=== PATIENT | male | born 1950 | race Hispanic/Latino ===

== ENCOUNTER → 2024-06-29 | Outpatient (REF) | payer MEDICARE | LOC: US 10:29 | PROVIDERS: ATTEND Specialist/Technologist, Other Surgical Technologist | DX: K74.60 Unspecified cirrhosis of liver (principal) | CPT/HCPCS: 76700 ==

== ENCOUNTER → 2024-09-21 | Outpatient (REF) | payer MEDICARE | LOC: EDSTATUS 12:35 → RAD 13:14 | PROVIDERS: ATTEND Student in an Organized Health Care Education/Training Program | DX: R07.81 Pleurodynia (principal) | CPT/HCPCS: 71046 ==

== ENCOUNTER 2024-11-16 06:26 | Day surgery (SDC) | payer MEDICARE ==
[2024-11-10 14:02] LABS: BASOPHILS % 0.5 % (0.0-1.0); EOSINOPHILS % 2.0 % (0.0-6.0); LYMPHOCYTES % 16.3 % (18.0-39.1); MONOCYTES % 15.3 % (4.4-11.3); NEUTROPHILS % 65.4 % (38.7-80.0); RED CELL DISTRIBUTION WIDTH 13.6 % (11.7-14.4)
[2024-11-10 14:25] LABS: INR 1.14
[2024-11-10 14:34] LABS: CHOL/HDL RATIO 3.1 (3.9-4.7); EST GLOMERULAR FILTRATION RATE 95.0 ML/MIN (>=60); LDL CHOLESTEROL 79.0 MG/DL (60-130)
[2024-11-16] VITALS (8 sets, daily range): BP systolic 138–144; BP diastolic 65–73; PULSE 61–69; RESP 14–21; TEMP 97.9–98.2; O2SAT 97–99
[~2024-11-16] VITALS: Ht 162.6 cm; Wt 81.6 kg
[2024-11-16] MEDS ORDERED: LIDOCAINE HCL 2% LOCAL 20 ML VIAL ONE (06:40)
[2024-11-16] MEDS ORDERED: SODIUM CHLORIDE 0.9% 1000ML 1,000 ML ONE (06:40)
[2024-11-16] MEDS ORDERED: SODIUM CHLORIDE 0.9% 500ML 1,000 ML ONE (06:41)
[2024-11-16] MEDS ORDERED: FENTANYL CITRATE/PF 100MCG/2 ML INJ ONE (07:32)
[2024-11-16] MEDS ORDERED: MIDAZOLAM HCL 2 MG/2 ML VIAL ONE (07:32)
[2024-11-16] MEDS ORDERED: MAGNESIUM OXID400 MG PO (09:38)
[2024-11-16] MEDS ORDERED: VITAMIN D325 MCG PO (09:38)
[2024-11-16] MEDS ORDERED: OMEGA 3 1,0001 EACH PO (09:38)
[2024-11-16] MEDS ORDERED: SERTRALINE HCL50 MG PO (09:38)
[2024-11-16] MEDS ORDERED: FOLIC ACID0.4 MG PO (09:38)
[2024-11-16] MEDS ORDERED: FLAXSEED1000 MG PO (09:38)
== END 2024-11-16 09:45 | disposition home or self-care (01) ==
LOC: CATH LAB 06:26
PROVIDERS: ATTEND Internal Medicine Cardiovascular Disease
DX: I20.89 Other forms of angina pectoris (principal); R94.31 Abnormal electrocardiogram [ECG] [EKG]; R06.02 Shortness of breath; D64.9 Anemia, unspecified; K74.60 Unspecified cirrhosis of liver; Z01.810 Encounter for preprocedural cardiovascular examination; Z01.812 Encounter for preprocedural laboratory examination; Z01.818 Encounter for other preprocedural examination; Z79.899 Other long term (current) drug therapy; Z68.30 Body mass index [BMI] 30.0-30.9, adult
CPT/HCPCS: 36415; 71046; 80048; 80061; 85025; 85610; 85730; 93005; 93451; C1751; C1769; J2003; J7030; J7040; J2250